=== PATIENT | male | born 1990 | race Caucasian/White ===

== ENCOUNTER 2017-05-16 07:11 | Emergency (ER) | payer OTHER ==
[2017-05-16] MEDS ORDERED: Ibuprofen 800 MG Tab PO ONE (07:44)
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
--- NOTE | 2017-05-16 08:46 | CR ---
EXAMINATION: Two-view chest (PA and Lateral views). HISTORY: Shortness of breath. FINDINGS: The trachea is midline. The cardiomediastinal silhouette is within normal limits. No pulmonary infilt rates, effusions or pneumothorax. Osseous structures appear unremarkable. IMPRESSION: No acute cardiopulmonary process.
[2017-05-16] MEDS ORDERED: Lidocaine 1% 20 ML MDV INJECT ONE (08:48)
--- NOTE | 2017-05-16 08:49 | CR ---
EXAMINATION: Left shoulder HISTORY: Pain COMPARISON: None TECHNIQUE: 3 views FINDINGS/IMPRESSION: There is no acute osseous abnormality, dislocation, or fracture. Joint spaces an d bone mineralization appears grossly preserved. Appearance of mild glenoid dysplasia.
--- NOTE | 2017-05-16 09:07 | CT ---
EXAMINATION: Non contrast CT head and facial bones. Coronal and sagittal reformats. HISTORY: Pain FINDINGS: No evidence of intra or extra axial hemorrhage, mass, midline shift, hydrocephalus or edema. No hyp oattenuation changes in the major vascular territories to suggest acute infarct. No abnormal intracr anial calcifications are detected. No evidence of substantial vascular calcifications. The pituitar y fossa appears unremarkable. Calvarium is intact. No evidence of skull fracture. There is a comminuted and mildly displaced fractures of the nasal bones and frontal processes of the maxilla. There is a left inferior orbital wall fracture with minimal herniation of orbital fat. The r ight orbital santizo appear intact. There is opacification of the right maxillary sinus small amount of hemorrhage within the left maxillary sinus. Moderate opacification of a few ethmoid air cells. There is a nondisplaced vertical mid septal fracture. The maxilla otherwise appears intact. The zygomatic arches and pterygoid plates are intact. The mandible appears intact. Temporomandibular joints are sym metric. There is a small amount of air within the left orbit. Minimal left exophthalmos. Subcutaneous air and swelling is noted within the left aspect of the face anterior to the maxillary sinus and wit hin the paranasal region. IMPRESSION: 1. No acute intracranial findings. 2. Comminuted mildly displaced nasal bone fractures. 3. Nondisplaced vertical septal fracture. 4. Inferior orbital wall fracture with minimal herniation of orbital fat. 5. Small amount of air within the post septal left orbit.
[2017-05-16] MEDS ORDERED: ceFAZolin 1 GM Vial IM ONE (09:13)
[2017-05-16] MEDS ORDERED: Water For Injection, Sterile 20 ML SDV INJECT STA (09:26)
[2017-05-16] MEDS ORDERED: Bacitracin Oint 1 GM U/D Packet TOP STA (09:28)
== END 2017-05-16 10:22 | disposition home or self-care (01) ==
LOC: MW.ED 07:11
DX: S06.0X9A Concussion with loss of consciousness of unspecified duration, initial encounter (principal); S02.32XB Fracture of orbital floor, left side, initial encounter for open fracture; S02.2XXA Fracture of nasal bones, initial encounter for closed fracture; S01.112A Laceration without foreign body of left eyelid and periocular area, initial encounter; S40.012A Contusion of left shoulder, initial encounter; Y04.8XXA Assault by other bodily force, initial encounter
CPT/HCPCS: 12011; 70450; 70486; 71046; 73030; 96372; 99284; A9270; J0690